=== PATIENT | male | born 1945 | race Two or more races ===

== ENCOUNTER 2024-10-28 10:56 | Inpatient (IN) | payer OTHER, BC ==
[~2024-10-28] VITALS: Ht 185.4 cm; Wt 113.4 kg
[2024-10-28] MEDS ORDERED: LEVALBUTEROL HCL 1.25 MG/3 ML SOLUTION IH STA (12:40)
[2024-10-28] MEDS ORDERED: BUDESONIDE 0.5 MG/2 ML AMPUL.NEB IH STA (12:42)
[2024-10-28] MEDS ORDERED: METHYLPREDNISOLONE SOD SUCC 125 MG VIAL IV STA (12:47)
[2024-10-28 14:18] LABS: HEMATOCRIT 44.4 % (39.0-48.0); HEMOGLOBIN 14.7 g/dL (13-16.00); MEAN CELL VOLUME 89.9 fL (80.0-100.00); MEAN CORPUSCULAR HEMOGLOBIN 29.8 pg (27.00-32.0); MEAN CORPUSCULAR HGB CONC 33.1 g/dl (32.0-36.0); PLATELET COUNT 219 K/uL (150-450); RED BLOOD COUNT 4.94 M/uL (4.00-6.00); RED CELL DISTRIBUTION WIDTH 15.1 % (11.5-14.5)
[2024-10-28 15:11] LABS: CALCIUM 9.1 mg/dL (8.5-10.1); CREATININE SERUM 1.44 mg/dL (0.70-1.30); GFR 47.32; POTASSIUM 4.37 mEq/L (3.5-5.1)
[2024-10-28] MEDS ORDERED: ACETAMINOPHEN 500 MG GEL..CAP PO PRN (19:15)
[2024-10-28] MEDS ORDERED: levoFLOXacin IN DEXTROSE 5 % 150 ML IV SCH (19:15)
[2024-10-28] MEDS ORDERED: 0.9 % SODIUM CHLORIDE 1,000 ML IV SCH (19:15)
[2024-10-28] MEDS ORDERED: LEVALBUTEROL HCL 1.25 MG/3 ML SOLUTION IH SCH (19:17)
[2024-10-28] MEDS ORDERED: IPRATROPIUM BROMIDE 0.5 MG/2.5 ML AMPUL.NEB IH SCH (20:00)
[2024-10-28 20:21] LABS: URINE APPEARANCE Clear; URINE BILIRRUBIN Small (NEGATIVE); URINE BLOOD Negative; URINE COLOR Dark Yellow; URINE GLUCOSE Negative (NEGATIVE); URINE LEUKOCYTE Trace; URINE NITRATE Negative
[2024-10-28 20:25] LABS: URINE BACTERIA 510.3 uL (0.0-1933); URINE CAST 13.69 uL (0.0-1.40); URINE EPITHELIAL CELLS 35.1 uL (0.0-38.8); URINE RBC 18.8 uL (0.0-20.8); URINE WBC 68.8 uL (0.0-23.2)
[2024-10-28 20:41] LABS: URINE KETONE 40 (NEGATIVE); URINE MUCUS MODERATE; URINE PROTEIN 100 (NEGATIVE)
[2024-10-28] MEDS ORDERED: GUAIFEN/DEXTROMETHORPHAN/PE 10 ML BLIST.PACK PO SCH (21:00)
[2024-10-28 21:04] LABS: INR 1.14; PARTIAL THROMBOPLASTIN TIME 28.4 SECONDS (22.0-34.0); PROTHROMBIN TIME 12.3 SECONDS (9.0-11.5)
[2024-10-29 02:05] VITALS: BP 132/72; O2SAT 93
[2024-10-29 08:13] VITALS: BP 174/83
[2024-10-29] MEDS ORDERED: FAMOTIDINE/PF 20 MG in 0.9 % SODIUM CHLORIDE 8 ML IV PUSH SCH (09:00)
[2024-10-29] MEDS ORDERED: FINASTERIDE 5 MG TABLET PO SCH (09:00)
[2024-10-29] MEDS ORDERED: AMLODIPINE BESYLATE 2.5 MG TABLET PO SCH (09:00)
[2024-10-29] MEDS ORDERED: ENOXAPARIN SODIUM 40 MG/0.4 ML SYRINGE SUBCUTANEO SCH ×2 (09:00)
[2024-10-29] MEDS ORDERED: LACTOBACILLUS ACIDOPHILUS 1 CAP CAP PO SCH (17:00)
[2024-10-29] MEDS ORDERED: LOSARTAN POTASSIUM 25 MG TABLET PO SCH (17:00)
[2024-10-29 17:28] VITALS: BP 163/90; O2SAT 95
[2024-10-30 00:31] VITALS: BP 149/88
[2024-10-30 07:24] LABS: HEMOGLOBIN 12.4 g/dL (13-16.00); MEAN CELL VOLUME 88.6 fL (80.0-100.00); MEAN CORPUSCULAR HEMOGLOBIN 29.7 pg (27.00-32.0); MEAN CORPUSCULAR HGB CONC 33.5 g/dl (32.0-36.0); PLATELET COUNT 171 K/uL (150-450); RED BLOOD COUNT 4.18 M/uL (4.00-6.00); RED CELL DISTRIBUTION WIDTH 14.9 % (11.5-14.5)
[2024-10-30 07:53] LABS: ALBUMIN 2.8 gm/dL (3.4-5.0); BILIRUBIN TOTAL 0.48 mg/dL (0.3-1.2); CALCIUM 7.9 mg/dL (8.5-10.1); CREATININE SERUM 0.94 mg/dL (0.70-1.30); GFR 77.42; GLOBULINA 3.5 G/DL (2.4-3.5); PHOSPHOROUS 2.6 mg/dL (2.5-4.9); POTASSIUM 3.7 mEq/L (3.5-5.1); TOTAL PROTEIN 6.3 gm/dL (6.4-8.2); URIC ACID 5.2 mg/dL (3.5-8.5)
[2024-10-30 08:06] VITALS: BP 169/82
[2024-10-30 08:07] LABS: C-REACTIVE PROTEIN 2.84 MG/DL (0.00-0.29)
[2024-10-30] MEDS ORDERED: LEVALBUTEROL HCL 0.63 MG/3 ML SOLUTION IH SCH (13:00)
[2024-10-30 17:49] VITALS: BP 166/79; O2SAT 95
[2024-10-31 01:31] VITALS: BP 154/73
[2024-10-31 08:09] VITALS: BP 153/82; O2SAT 97
[2024-10-31] MEDS ORDERED: FAMOtidine 20 MG TABLET PO SCH (21:00)
== END 2024-10-31 13:28 | disposition home or self-care (01) | DRG 194 ==
LOC: ER 10:59 → MEDI 19:28
PROVIDERS: General Practice; Internal Medicine Infectious Disease; Internal Medicine Nephrology; ADMIT Internal Medicine; ATTEND Internal Medicine
PROC: BB24ZZZ Computerized Tomography (CT Scan) of Bilateral Lungs (ICD-10-PCS; principal; 2024-10-28)
PROC: 3E0F7GC Introduction of Other Therapeutic Substance into Respiratory Tract, Via Natural or Artificial Opening (ICD-10-PCS; 2024-10-28)
DX: J18.1 Lobar pneumonia, unspecified organism (principal); N17.9 Acute kidney failure, unspecified; J45.40 Moderate persistent asthma, uncomplicated; R80.9 Proteinuria, unspecified; I12.9 Hypertensive chronic kidney disease with stage 1 through stage 4 chronic kidney disease, or unspecified chronic kidney disease; N18.9 Chronic kidney disease, unspecified; Z87.891 Personal history of nicotine dependence; Z88.1 Allergy status to other antibiotic agents

== ENCOUNTER 2025-05-10 11:36 | Outpatient (CLI) | payer OTHER, BC | END 2025-05-10 11:42 | disposition home or self-care (01) | LOC: RAD 11:36 | DX: M54.50 Low back pain, unspecified (principal); M16.10 Unilateral primary osteoarthritis, unspecified hip; M54.2 Cervicalgia; M47.812 Spondylosis without myelopathy or radiculopathy, cervical region ==